=== PATIENT | female | born 1960 | race Caucasian/White ===

== ENCOUNTER 2019-07-20 20:56 | Inpatient (IN) | payer MEDICAID, OTHER ==
[~2019-07-20] VITALS: Ht 170.2 cm; Wt 64.4 kg
[2019-07-20] MEDS ORDERED: ALBUTEROL/IPRATROPIUM 2.5MG/0.5MG, 3 ML NPPB ONE (21:30)
[2019-07-20] MEDS ORDERED: SODIUM CHLORIDE FLUSH 10ML SYR IVF ONE (21:30)
[2019-07-20] MEDS ORDERED: ALBUTEROL SULFATE 2.5 MG/3 ML NPPB ONE (21:30)
[2019-07-20] MEDS ORDERED: methylPREDNISolone SOD SUCC 125 MG/2 ML IVPush ONE (21:30)
[2019-07-20] MEDS ORDERED: PLEASE ENTER ALLERGIES MC SCH (21:30)
[2019-07-20 21:59] LABS: BASOPHILS # (AUTO) 0.02 x10^3/uL (0-0.1); BASOPHILS % (AUTO) 0 % (0-1); EOSINOPHILS # (AUTO) 0.04 x10^3/uL (0-0.4); EOSINOPHILS % (AUTO) 1 % (1-7); LYMPHOCYTES # (AUTO) 0.92 x10^3/uL (1-3.4); LYMPHOCYTES % (AUTO) 12 % (22-44); MD NO; MEAN CORPUSCULAR HEMOGLOBIN 32.2 pg (27.0-34.8); MEAN CORPUSCULAR HGB CONC 33.6 g/dL (32.4-35.8); MONOCYTES # (AUTO) 0.26 x10^3/uL (0.2-0.8); MONOCYTES % (AUTO) 4 % (2-9); NEUTROPHILS # (AUTO) 6.21 x10^3/uL (1.8-6.8); NEUTROPHILS % (AUTO) 83 % (42-75); PLATELET COUNT 382 x10^3/uL (130-400); RED BLOOD COUNT 4.09 x10^6/uL (3.82-5.3); RED CELL DISTRIBUTION WIDTH 13.8 % (9.6-15.2)
[2019-07-20 22:10] LABS: ALANINE AMINOTRANSFERASE 15 U/L (12-78); ALBUMIN 3.7 g/dL (3.4-5.0); ANION GAP 4 mmol/L (5-15); CHLORIDE 100 mmol/L (98-107); CREATININE 0.54 mg/dL (0.55-1.02)
[2019-07-20] MEDS ORDERED: methylPREDNISolone SOD SUCC 125 MG/2 ML ONE (22:13)
[2019-07-20 22:15] LABS: ALKALINE PHOSPHATASE 193 U/L (45-117); BILIRUBIN,TOTAL 0.3 mg/dL (0.2-1.0); TOTAL PROTEIN 7.1 g/dL (6.4-8.2); TROPONIN I < 0.015 ng/mL (0.000-0.045)
--- NOTE | 2019-07-20 23:14 | NUR ---
ELEUTERIO RN: [facility] CALLED [facility] AND PT. DECLINED BY LE EDDY, RN. CALLED [facility] AND PT. ALSO DECLINED BY JULIO VILLELA.
--- NOTE | 2019-07-20 23:20 | NUR ---
REPORT TO KAREN FERNANDES. PT IN BED, HOSPITALIST AT BEDSIDE. UPDATED ON PLAN OF CARE, VERBALIZES UNDERSTANDING AND DENIES ANY FURTHER NEEDS OR CONCERNS AT THIS TIME. CALL [facility]. AWAITING TRANSPORT.
[2019-07-20] MEDS ORDERED: ONDANSETRON 2MG/ML, 2ML IVPush PRN (23:30)
[2019-07-20] MEDS ORDERED: morphine SULFATE 10 MG/ML, 1ML IVPush PRN (23:30)
[2019-07-20] MEDS ORDERED: ONDANSETRON ODT 4 MG PO PRN (23:30)
[2019-07-20] MEDS ORDERED: POLYETHYLENE GLYCOL 17 GM PACKET PO PRN (23:30)
[2019-07-20] MEDS ORDERED: ACETAMINOPHEN 325 MG TABLET PO PRN (23:30)
[2019-07-20] MEDS ORDERED: PROMETHAZINE 25 MG/ML, 1ML IM PRN (23:30)
[2019-07-20] MEDS ORDERED: BISACODYL 10 MG SUPP PR PRN (23:30)
[2019-07-20] MEDS ORDERED: hydrALAzine 20 MG/ML, 1ML IVPush PRN (23:30)
[2019-07-20 23:56] VITALS: BP 116/72
[2019-07-21 00:05] LABS: FREE T4 (FREE THYROXINE) 1.05 ng/dL (0.76-1.46)
[2019-07-21 00:47] VITALS: BP 116/72
[2019-07-21] MEDS: DOXYCYCLINE 100MG TABLET PO SCH ×3 (04:46→21:28)
[2019-07-21] MEDS: methylPREDNISolone SOD SUCC 125 MG/2 ML IVPush SCH ×3 (04:46→18:21)
[2019-07-21 04:48] LABS: BASOPHILS % (AUTO) 0 % (0-1); EOSINOPHILS % (AUTO) 0 % (1-7); LYMPHOCYTES # (AUTO) 0.64 x10^3/uL (1-3.4); LYMPHOCYTES % (AUTO) 13 % (22-44); MD NO; MEAN CORPUSCULAR HEMOGLOBIN 31.9 pg (27.0-34.8); MEAN CORPUSCULAR HGB CONC 33.1 g/dL (32.4-35.8); MEAN CORPUSCULAR VOLUME 96.4 fL (80-100); MEAN PLATELET VOLUME 6.1 fL (7.4-10.4); MONOCYTES # (AUTO) 0.04 x10^3/uL (0.2-0.8); MONOCYTES % (AUTO) 1 % (2-9); NEUTROPHILS # (AUTO) 4.18 x10^3/uL (1.8-6.8); NEUTROPHILS % (AUTO) 86 % (42-75); PLATELET COUNT 358 x10^3/uL (130-400); RED BLOOD COUNT 4.11 x10^6/uL (3.82-5.3); RED CELL DISTRIBUTION WIDTH 13.7 % (9.6-15.2)
[2019-07-21 04:53] LABS: ALBUMIN 3.6 g/dL (3.4-5.0); ANION GAP 2 mmol/L (5-15); CALCIUM 9.2 mg/dL (8.5-10.1); CHLORIDE 100 mmol/L (98-107)
[2019-07-21 04:56] LABS: ALANINE AMINOTRANSFERASE 18 U/L (12-78); ALKALINE PHOSPHATASE 192 U/L (45-117); BILIRUBIN,TOTAL 0.3 mg/dL (0.2-1.0); CHOL/HDL RATIO 2.1; CHOLESTEROL, TOTAL 230 mg/dL (140-239); HDL CHOL % 47 % (28-40); HDL CHOLESTEROL (DIRECT) 107 mg/dL (40-60); LDL CHOLESTEROL,CALCULATED 110 mg/dL (54-169); TOTAL PROTEIN 7.2 g/dL (6.4-8.2); TRIGLYCERIDES 67 mg/dL (50-200); VLDL CHOLESTEROL 13 mg/dL (0-25)
[2019-07-21 05:50] VITALS: BP 108/61
[2019-07-21] MEDS: METOPROLOL SUCCINATE 25 MG TAB.ER.24H PO SCH (05:52)
[2019-07-21] MEDS: ALBUTEROL/IPRATROPIUM 2.5MG/0.5MG, 3 ML NPPB SCH ×4 (06:00→20:39)
[2019-07-21] MEDS: SPIRONOLACTONE 25 MG TABLET PO SCH (08:18)
[2019-07-21] MEDS: SENNA/DOCUSATE TABLET PO SCH (08:20)
[2019-07-21] MEDS: LOSARTAN 25MG TABLET PO SCH (08:20)
[2019-07-21 08:21] VITALS: BP 124/68
[2019-07-21] MEDS: HYDROcodone/APAP 5/325 TABLET PO PRN ×3 (10:12→19:39)
[2019-07-21 13:28] VITALS: BP 120/73
[2019-07-21] MEDS: RIVAROXABAN 20 MG TABLET PO SCH (18:21)
[2019-07-21 19:04] VITALS: BP 118/73
[2019-07-21] MEDS: BUDESONIDE 0.5 MG/2 ML INHA NPPB SCH (20:39)
[2019-07-22] MEDS: methylPREDNISolone SOD SUCC 125 MG/2 ML IVPush SCH ×4 (00:09→17:22)
[2019-07-22] MEDS: HYDROcodone/APAP 5/325 TABLET PO PRN ×6 (00:09→20:50)
[2019-07-22 02:02] VITALS: BP 108/58
[2019-07-22 05:53] VITALS: BP 115/62
[2019-07-22] MEDS: METOPROLOL SUCCINATE 25 MG TAB.ER.24H PO SCH (05:55)
[2019-07-22] MEDS: ALBUTEROL/IPRATROPIUM 2.5MG/0.5MG, 3 ML NPPB SCH ×4 (06:00→19:19)
[2019-07-22 06:27] LABS: CHLORIDE 97 mmol/L (98-107)
[2019-07-22] MEDS: BUDESONIDE 0.5 MG/2 ML INHA NPPB SCH ×2 (06:34→19:19)
[2019-07-22 06:36] LABS: ALANINE AMINOTRANSFERASE 15 U/L (12-78); ALBUMIN 3.5 g/dL (3.4-5.0); ALKALINE PHOSPHATASE 172 U/L (45-117); ANION GAP 6 mmol/L (5-15); BILIRUBIN,TOTAL 0.3 mg/dL (0.2-1.0); CALCIUM 8.6 mg/dL (8.5-10.1); CREATININE 0.67 mg/dL (0.55-1.02); TOTAL PROTEIN 6.9 g/dL (6.4-8.2)
[2019-07-22 06:49] LABS: MEAN CORPUSCULAR HEMOGLOBIN 32.3 pg (27.0-34.8); MEAN CORPUSCULAR HGB CONC 33.3 g/dL (32.4-35.8); MEAN CORPUSCULAR VOLUME 96.9 fL (80-100); MEAN PLATELET VOLUME 6.2 fL (7.4-10.4); PLATELET COUNT 349 x10^3/uL (130-400); RED BLOOD COUNT 4.01 x10^6/uL (3.82-5.3); RED CELL DISTRIBUTION WIDTH 13.5 % (9.6-15.2)
[2019-07-22 07:11] VITALS: BP 115/71
[2019-07-22 08:00] LABS: BASOPHILS % (AUTO) 0 % (0-1); EOSINOPHILS % (AUTO) 0 % (1-7); LYMPHOCYTES # (AUTO) 0.57 x10^3/uL (1-3.4); LYMPHOCYTES % (AUTO) 5 % (22-44); MD SCAN; MONOCYTES # (AUTO) 0.11 x10^3/uL (0.2-0.8); MONOCYTES % (AUTO) 1 % (2-9); NEUTROPHILS % (AUTO) 94 % (42-75)
[2019-07-22] MEDS: SPIRONOLACTONE 25 MG TABLET PO SCH (08:45)
[2019-07-22] MEDS: DOXYCYCLINE 100MG TABLET PO SCH ×2 (08:45→20:50)
[2019-07-22] MEDS: SENNA/DOCUSATE TABLET PO SCH (08:46)
[2019-07-22] MEDS: LOSARTAN 25MG TABLET PO SCH (08:46)
[2019-07-22 13:45] VITALS: BP 128/74
[2019-07-22] MEDS: RIVAROXABAN 20 MG TABLET PO SCH (17:00)
[2019-07-22] MEDS: GUAIFENESIN 200 MG TABLET PO SCH ×2 (18:00→20:49)
[2019-07-22 19:55] VITALS: BP 112/68
[2019-07-23] MEDS: methylPREDNISolone SOD SUCC 125 MG/2 ML IVPush SCH ×5 (00:26→23:58)
[2019-07-23] MEDS: HYDROcodone/APAP 5/325 TABLET PO PRN ×6 (00:32→22:30)
[2019-07-23 01:00] VITALS: BP 117/69
[2019-07-23] MEDS: METOPROLOL SUCCINATE 25 MG TAB.ER.24H PO SCH (05:50)
[2019-07-23] MEDS: GUAIFENESIN 200 MG TABLET PO SCH ×4 (05:51→20:56)
[2019-07-23 05:53] LABS: BASOPHILS % (AUTO) 0 % (0-1); EOSINOPHILS # (AUTO) 0.06 x10^3/uL (0-0.4); EOSINOPHILS % (AUTO) 1 % (1-7); LYMPHOCYTES # (AUTO) 0.42 x10^3/uL (1-3.4); LYMPHOCYTES % (AUTO) 4 % (22-44); MD NO; MEAN CORPUSCULAR HEMOGLOBIN 31.7 pg (27.0-34.8); MEAN CORPUSCULAR HGB CONC 33.1 g/dL (32.4-35.8); MEAN CORPUSCULAR VOLUME 95.9 fL (80-100); MEAN PLATELET VOLUME 6.2 fL (7.4-10.4); MONOCYTES # (AUTO) 0.26 x10^3/uL (0.2-0.8); MONOCYTES % (AUTO) 2 % (2-9); NEUTROPHILS # (AUTO) 9.79 x10^3/uL (1.8-6.8); NEUTROPHILS % (AUTO) 93 % (42-75); PLATELET COUNT 344 x10^3/uL (130-400); RED BLOOD COUNT 3.78 x10^6/uL (3.82-5.3); RED CELL DISTRIBUTION WIDTH 13.2 % (9.6-15.2)
[2019-07-23 05:59] LABS: ALBUMIN 3.3 g/dL (3.4-5.0); ANION GAP 5 mmol/L (5-15); CALCIUM 8.8 mg/dL (8.5-10.1); CHLORIDE 99 mmol/L (98-107)
[2019-07-23 06:04] LABS: ALANINE AMINOTRANSFERASE 13 U/L (12-78); ALKALINE PHOSPHATASE 144 U/L (45-117); BILIRUBIN,TOTAL 0.3 mg/dL (0.2-1.0); CREATININE 0.49 mg/dL (0.55-1.02); TOTAL PROTEIN 6.5 g/dL (6.4-8.2)
[2019-07-23] MEDS: ALBUTEROL/IPRATROPIUM 2.5MG/0.5MG, 3 ML NPPB SCH ×4 (07:14→21:05)
[2019-07-23] MEDS: BUDESONIDE 0.5 MG/2 ML INHA NPPB SCH ×2 (07:14→21:05)
[2019-07-23 07:34] VITALS: BP 130/72
[2019-07-23] MEDS: SENNA/DOCUSATE TABLET PO SCH (09:00)
[2019-07-23] MEDS: SPIRONOLACTONE 25 MG TABLET PO SCH (09:44)
[2019-07-23] MEDS: DOXYCYCLINE 100MG TABLET PO SCH ×2 (09:44→20:56)
[2019-07-23] MEDS: LOSARTAN 25MG TABLET PO SCH (09:46)
[2019-07-23] MEDS: FAMOTIDINE 20 MG TABLET PO SCH ×2 (12:00→20:56)
[2019-07-23] MEDS ORDERED: FAMOTIDINE 40 MG TABLET ONE ×2 (12:21→12:32)
[2019-07-23 13:13] VITALS: BP 133/76
[2019-07-23] MEDS: RIVAROXABAN 20 MG TABLET PO SCH (16:59)
[2019-07-23 19:08] VITALS: BP 129/70
[2019-07-24 00:08] VITALS: BP 135/75
[2019-07-24] MEDS: HYDROcodone/APAP 5/325 TABLET PO PRN ×3 (02:32→12:29)
[2019-07-24 05:13] LABS: BASOPHILS # (AUTO) 0.01 x10^3/uL (0-0.1); BASOPHILS % (AUTO) 0 % (0-1); EOSINOPHILS % (AUTO) 0 % (1-7); LYMPHOCYTES # (AUTO) 0.32 x10^3/uL (1-3.4); LYMPHOCYTES % (AUTO) 4 % (22-44); MD NO; MEAN PLATELET VOLUME 6.4 fL (7.4-10.4); MONOCYTES # (AUTO) 0.19 x10^3/uL (0.2-0.8); MONOCYTES % (AUTO) 3 % (2-9); NEUTROPHILS # (AUTO) 6.94 x10^3/uL (1.8-6.8); NEUTROPHILS % (AUTO) 93 % (42-75); PLATELET COUNT 291 x10^3/uL (130-400); RED BLOOD COUNT 3.74 x10^6/uL (3.82-5.3); RED CELL DISTRIBUTION WIDTH 13.5 % (9.6-15.2)
[2019-07-24 05:17] LABS: ANION GAP 7 mmol/L (5-15); CALCIUM 8.3 mg/dL (8.5-10.1); CHLORIDE 100 mmol/L (98-107)
[2019-07-24 05:18] LABS: CREATININE 0.51 mg/dL (0.55-1.02)
[2019-07-24] MEDS: ALBUTEROL/IPRATROPIUM 2.5MG/0.5MG, 3 ML NPPB SCH ×2 (06:00→11:00)
[2019-07-24] MEDS: METOPROLOL SUCCINATE 25 MG TAB.ER.24H PO SCH (06:15)
[2019-07-24] MEDS: GUAIFENESIN 200 MG TABLET PO SCH ×2 (06:15→09:18)
[2019-07-24] MEDS: methylPREDNISolone SOD SUCC 125 MG/2 ML IVPush SCH (06:16)
[2019-07-24] MEDS: BUDESONIDE 0.5 MG/2 ML INHA NPPB SCH (07:12)
[2019-07-24 08:45] VITALS: BP 146/74
[2019-07-24] MEDS: SENNA/DOCUSATE TABLET PO SCH (09:00)
[2019-07-24] MEDS ORDERED: SPIR25TA PO (09:01)
[2019-07-24] MEDS ORDERED: METO25TA91 PO (09:01)
[2019-07-24] MEDS ORDERED: ALBU8.5H8 INH (09:01)
[2019-07-24] MEDS ORDERED: LOSA25TA25 PO (09:01)
[2019-07-24] MEDS ORDERED: HYDR-826 PO (09:01)
[2019-07-24] MEDS ORDERED: POLY17PO5 PO (09:01)
[2019-07-24] MEDS ORDERED: DOXY100T PO (09:01)
[2019-07-24] MEDS ORDERED: RIVA20TA PO (09:01)
[2019-07-24] MEDS ORDERED: BUDE10.2 INH (09:01)
[2019-07-24] MEDS ORDERED: GUAI200T37 PO (09:01)
[2019-07-24] MEDS ORDERED: FAMO20TA7 PO (09:01)
[2019-07-24] MEDS ORDERED: PRED10TA PO (09:02)
[2019-07-24] MEDS ORDERED: FAMOTIDINE 40 MG TABLET ONE (09:12)
[2019-07-24] MEDS: DOXYCYCLINE 100MG TABLET PO SCH (09:16)
[2019-07-24] MEDS: SPIRONOLACTONE 25 MG TABLET PO SCH (09:17)
[2019-07-24] MEDS: LOSARTAN 25MG TABLET PO SCH (09:17)
[2019-07-24] MEDS: FAMOTIDINE 20 MG TABLET PO SCH (09:18)
[2019-07-24] MEDS ORDERED: IPRA3AMP30 NPPB (11:36)
[2019-07-29] MEDS ORDERED: AZIT500T10 PO (16:03)
== END 2019-07-24 13:45 | disposition home or self-care (01) | DRG 189 ==
LOC: ED 22:36 → EDIP 22:37 → ED 22:46 → 4NW 23:45 → DCLOUNGE 07-24 13:27
PROVIDERS: ADMIT Internal Medicine; ATTEND Hospitalist
DX: J96.21 Acute and chronic respiratory failure with hypoxia (principal); D68.69 Other thrombophilia; I50.22 Chronic systolic (congestive) heart failure; J44.1 Chronic obstructive pulmonary disease with (acute) exacerbation; J40 Bronchitis, not specified as acute or chronic; I11.0 Hypertensive heart disease with heart failure; I48.91 Unspecified atrial fibrillation; M06.9 Rheumatoid arthritis, unspecified; Z87.891 Personal history of nicotine dependence; Z87.11 Personal history of peptic ulcer disease
CPT/HCPCS: 36415; 84145; 96374; 99285; J7613; J7620; J7626; 71045; 80048; 80053; 80061; 82040; 83036; 83605; 83735; 83880; 84100; 84439; 84443; 84484; 85025; 87070; 87077; 87205; 93005; 94640; G0378; J2930; J7512; Q0177

== ENCOUNTER 2019-09-12 13:51 | Emergency (ER) | payer SELFPAY ==
[~2019-09-12 13:51] MED LIST: ALBU8.5H8 INH; AZIT500T10 PO; BUDE10.2 INH; DOXY100T PO; FAMO20TA7 PO; GUAI200T37 PO; HYDR-826 PO; IPRA3AMP30 NPPB; LOSA25TA25 PO; METO25TA91 PO; POLY17PO5 PO; PRED10TA PO; RIVA20TA PO; SPIR25TA PO
--- NOTE | 2019-09-12 14:00 | NUR ---
PT CAME IN A CODE VIA AMBULANCE. SEE CODE SHEET
--- NOTE | 2019-09-12 14:20 | NUR ---
1405: PT , PLEASE SEE CODE SHEET
--- NOTE | 2019-09-12 14:31 | NUR ---
CALLED [employer]
--- NOTE | 2019-09-12 14:32 | NUR ---
CALLED [employer], WILL CALL BACK WITH NAME
[2019-09-12] MEDS ORDERED: CODE BLUE RESPONSE XX ONE (15:03)
[2019-09-12] MEDS ORDERED: EPINEPHRINE SYRINGE 0.1 MG/ML, 10ML ONE (15:03)
--- NOTE | 2019-09-12 16:17 | NUR ---
RECEIVED A CORRECT NAME OF PATIENT FROM [employer]. NEXT OF KIN ISIDRO KAM PHONE NUMBER NOT WORKING
--- NOTE | 2019-09-12 16:32 | NUR ---
SPOKE WITH JAS AT [employer], SHE STATES BROTHER ISIDRO KAM IS AWARE OF AND WILL CALL [facility] FOR DETAILS. [employer] DECLINES BUT WILL HAVE MEDICAL DATA ANALYST [employer] FOR FINGER PRINT ID.
== END 2019-09-12 18:09 | disposition expired ==
LOC: EDSEX → EDBD → MERGE 13:51 → ED 14:51
DX: I46.9 Cardiac arrest, cause unspecified (principal)
CPT/HCPCS: 92950; 99285